=== PATIENT | male | born 1950 | race Caucasian/White ===

== ENCOUNTER → 2017-12-26 | Outpatient (CLI) | payer MEDICARE, OTHER ==
[2014-08-26 07:57] VITALS: BMI 24.2
[~2017-12-26] MED LIST: DIAZ-308 PO; DOCU-416 PO; MIRT-1 PO; MULT1TAB54 PO; NONE NOW; PARO-242 PO; POLY17PO25 PO
--- NOTE | 2017-12-26 15:47 | RADIOLOGY IMAGING REPORT ---
FACILITY: [facility] [place] PATIENT NAME: Pj Monzon : 1950 MR: [id number] V: [id number] EXAM DATE: ORDERING PHYSICIAN: MISTI RANDOLPH TECHNOLOGIST: Location: [facility] - [place] Patient: Pj Monzon : 1950 Visit/Account:[id number] Date of Sevice: 12/26/2017 VENOUS DOPP LOW LEFT EXTREMITY HISTORY: Left calf pain/swelling COMPARISON: None. FINDINGS: Grayscale, duplex and color Doppler interrogation of the left lower extremity deep veins from common femoral vein to proximal calf was completed. The greater saphenous vein in the proximal thigh was mitul luated using similar technique. Common femoral vein - Negative. Femoral vein - Negative. Deep femoral vein - Negative. Popliteal vein - Negative. Visualized deep calf veins - Negative. Popliteal fossa: Negative. Greater saphenous vein in the proximal thigh: Negative. IMPRESSION: No evidence for DVT. Report Dictated By: Main Castro MD at 12/26/2017 3:42 PM Report E-Signed By: Main Castro MD at 12/26/2017 3:43 PM WSN:[id number]
== END ==
LOC: US 14:50
PROVIDERS: ATTEND Orthopaedic Surgery
DX: M79.662 Pain in left lower leg (principal); R60.0 Localized edema